=== PATIENT | female | born 1980 | race Two or more races ===

== ENCOUNTER 2018-04-09 15:25 | Outpatient (CLI) | payer BC ==
[~2018-04-09] VITALS: Ht 160 cm; Wt 75.0 kg
[2018-04-09 15:51] VITALS: BP 101/52
[2018-04-09 16:21] LABS: MICROSCOPIC NOT IND
== END 2018-04-09 17:23 | disposition home or self-care (01) ==
LOC: LDOP 15:25
PROVIDERS: ATTEND Obstetrics & Gynecology Maternal & Fetal Medicine
DX: O26.892 Other specified pregnancy related conditions, second trimester (principal); R10.9 Unspecified abdominal pain; Z3A.24 24 weeks gestation of pregnancy
CPT/HCPCS: 36415; 59025; 81003; 82731; 87086; 99211; G0463

== ENCOUNTER 2018-07-06 16:27 | Outpatient (CLI) | payer BC ==
[~2018-07-06] VITALS: Ht 161.3 cm; Wt 77.7 kg
[2018-07-06 16:44] VITALS: BP 100/56
[2018-07-06] MEDS ORDERED: TERBUTALINE 1 MG/ML, 1ML SQ ONE (17:00)
[2018-07-06] MEDS ORDERED: PREN1TAB60 PO (17:21)
[2018-07-06] MEDS ORDERED: LACTATED RINGERS 1,000 ML IVBOLUS ONE (17:30)
== END 2018-07-06 19:10 | disposition home or self-care (01) ==
LOC: LDOP 16:27
PROVIDERS: ATTEND Obstetrics & Gynecology Maternal & Fetal Medicine
DX: O09.523 Supervision of elderly multigravida, third trimester (principal); O32.1XX0 Maternal care for breech presentation, not applicable or unspecified; Z3A.37 37 weeks gestation of pregnancy
CPT/HCPCS: 59025; 59412; 76805; 76818; 96360; 96361; 99211; J7120; G0463

== ENCOUNTER 2018-07-15 09:06 | Outpatient (CLI) | payer BC ==
[~2018-07-15] VITALS: Ht 161.3 cm; Wt 78.1 kg
[~2018-07-15 09:06] MED LIST: PREN1TAB60 PO
[2018-07-15 09:41] VITALS: BP 109/57
[2018-07-15] MEDS ORDERED: LACTATED RINGERS 1,000 ML IVBOLUS ONE (10:30)
[2018-07-15 10:42] LABS: MICROSCOPIC INDICATED
[2018-07-15] MEDS ORDERED: NITR100C56 PO (11:59)
== END 2018-07-15 12:30 | disposition home or self-care (01) ==
LOC: LDOP 09:06
PROVIDERS: ATTEND Obstetrics & Gynecology Maternal & Fetal Medicine
DX: O26.93 Pregnancy related conditions, unspecified, third trimester (principal); R10.9 Unspecified abdominal pain; Z3A.38 38 weeks gestation of pregnancy
CPT/HCPCS: 59025; 81001; 87086; 96360; 96361; 99211; J7120; G0463

== ENCOUNTER 2018-07-21 05:37 | Inpatient (IN) | payer BC ==
[~2018-07-21] VITALS: Ht 160 cm; Wt 78.2 kg
[~2018-07-21 05:37] MED LIST changes: +NITR100C56 PO
[2018-07-21] MEDS ORDERED: LACTATED RINGERS 1,000 ML IV SCH ×2 (05:42→06:00)
[2018-07-21] MEDS ORDERED: OXYTOCIN 30U/ 0.9% NaCL 500ML 500 ML IV SCH (05:42)
[2018-07-21] MEDS ORDERED: NEWBORN KIT ONE (05:47)
[2018-07-21 06:00] VITALS: BP 110/63
[2018-07-21] MEDS ORDERED: METOCLOPRAMIDE 5 MG/ML, 2ML IV ONE (06:00)
[2018-07-21] MEDS ORDERED: SODIUM CITRATE/CITRIC ACID 30 ML UDC PO ONE (06:00)
[2018-07-21] MEDS ORDERED: LACTATED RINGERS 1,000 ML IVBOLUS ONE (06:00)
[2018-07-21 06:13] LABS: BASOPHILS # (AUTO) 0.04 x10^3/uL (0-0.1); BASOPHILS % (AUTO) 1 % (0-1); EOSINOPHILS # (AUTO) 0.12 x10^3/uL (0-0.4); EOSINOPHILS % (AUTO) 1 % (1-7); LYMPHOCYTES # (AUTO) 1.67 x10^3/uL (1-3.4); LYMPHOCYTES % (AUTO) 17 % (22-44); MD NO; MEAN CORPUSCULAR HEMOGLOBIN 32.5 pg (27.0-34.8); MEAN CORPUSCULAR HGB CONC 33.8 g/dL (32.4-35.8); MEAN PLATELET VOLUME 8.5 fL (7.4-10.4); MONOCYTES # (AUTO) 0.69 x10^3/uL (0.2-0.8); MONOCYTES % (AUTO) 7 % (2-9); NEUTROPHILS # (AUTO) 7.14 x10^3/uL (1.8-6.8); NEUTROPHILS % (AUTO) 74 % (42-75); PLATELET COUNT 242 x10^3/uL (130-400); RED CELL DISTRIBUTION WIDTH 14.8 % (9.6-15.2)
[2018-07-21] MEDS ORDERED: SODIUM CITRATE/CITRIC ACID 30 ML UDC ONE (07:11)
[2018-07-21] MEDS ORDERED: METOCLOPRAMIDE 5 MG/ML, 2ML ONE (07:11)
[2018-07-21] MEDS ORDERED: OXYTOCIN 30U/ 0.9% NaCL 500ML 500 ML ONE (07:11)
[2018-07-21] MEDS ORDERED: morphine SULFATE/PF 0.5 MG/ML, 10ML ONE (07:28)
[2018-07-21] MEDS ORDERED: WATER-INJECTION,STERILE 10 ML IV ONE (07:29)
[2018-07-21] MEDS ORDERED: ONDANSETRON 2MG/ML, 2ML ONE (07:29)
[2018-07-21] MEDS ORDERED: CEFAZOLIN 1,000 MG ONE (07:29)
[2018-07-21] MEDS ORDERED: OXYTOCIN 10 UNITS/ML, 1ML ONE ×2 (07:29→07:45)
[2018-07-21] MEDS ORDERED: DEXAMETHASONE 4 MG/ML, 1ML ONE (07:29)
[2018-07-21] MEDS ORDERED: KETOROLAC 30 MG/1 ML ONE (08:00)
[2018-07-21] MEDS: LACTATED RINGERS 1,000 ML IV SCH ×4 (08:39→18:39)
[2018-07-21] MEDS: PRENATAL VIT/IRON/FA 1 EACH TABLET PO SCH (09:00)
[2018-07-21] MEDS ORDERED: METHYLERGONOVINE 0.2 MG/ML IM PRN (09:00)
[2018-07-21] MEDS ORDERED: ONDANSETRON 2MG/ML, 2ML IV PRN (09:00)
[2018-07-21] MEDS ORDERED: MISOPROSTOL 200 MCG TABLET PR PRN (09:00)
[2018-07-21] MEDS ORDERED: OXYcodone/APAP 5/325MG TABLET PO PRN ×2 (09:00)
[2018-07-21] MEDS ORDERED: DIPH,PERTUSS(ACELL),TET VAC/PF NC IM-VACC PRN (09:00)
[2018-07-21] MEDS ORDERED: ACETAMINOPHEN 325 MG TABLET PO PRN (09:00)
[2018-07-21] MEDS ORDERED: MEASLES,MUMPS&RUBELLA VACC/PF 0.5 ML SQ-VACC PRN (09:00)
[2018-07-21] MEDS ORDERED: CARBOPROST TROMETHAMINE 250 MCG/ML, 1ML IM PRN (09:00)
[2018-07-21] MEDS: OXYTOCIN 30U/ 0.9% NaCL 500ML 500 ML IV SCH ×2 (09:37→18:39)
[2018-07-21] MEDS ORDERED: OXYcodone 5 MG/5 ML ORAL.SOL UDC ONE (10:25)
[2018-07-21] MEDS ORDERED: OXYcodone 5 MG/5 ML ORAL.SOL UDC PO PRN (10:30)
[2018-07-21] MEDS: KETOROLAC 30 MG/1 ML IV SCH ×3 (11:27→23:45)
[2018-07-21 12:00] VITALS: BP 107/65
[2018-07-21 14:10] VITALS: BP 100/57
[2018-07-21 16:21] LABS: MEAN CORPUSCULAR HGB CONC 32.8 g/dL (32.4-35.8); MEAN CORPUSCULAR VOLUME 97.4 fL (80-100); MEAN PLATELET VOLUME 8.6 fL (7.4-10.4); PLATELET COUNT 249 x10^3/uL (130-400); RED BLOOD COUNT 4.04 x10^6/uL (3.82-5.3); RED CELL DISTRIBUTION WIDTH 14.9 % (9.6-15.2)
[2018-07-21 16:43] LABS: MD YES
[2018-07-21 16:47] LABS: BAND#(MANUAL) 1.75 x10^3/uL; BANDS%(MANUAL) 10 % (0-7); LYMPHS% (MANUAL) 4 % (22-44); MONOS#(MANUAL) 0.35 x10^3/uL (0.3-2.7); MONOS% (MANUAL) 2 % (2-9); SEGS% (MANUAL) 84 % (42-75)
[2018-07-21 16:48] LABS: <PLATELET ESTIMATE> ADEQUATE; <PLT MORPHOLOGY> NORMAL PLT MORPH; <RBC MORPHOLOGY> NORMAL
[2018-07-21 18:00] VITALS: BP 104/67
[2018-07-21] MEDS ORDERED: RHOGAM FROM BLOOD BANK 1 NOTE EA IM/IV ONE (18:00)
[2018-07-21 19:30] VITALS: BP 95/55
[2018-07-22] VITALS: BP 100/51
[2018-07-22] MEDS: LACTATED RINGERS 1,000 ML IV SCH ×5 (00:39→16:39)
[2018-07-22] MEDS ORDERED: DIPHENHYDRAMINE 50 MG/ML, 1ML IVPush PRN (02:30)
[2018-07-22 04:00] VITALS: BP 95/54
[2018-07-22] MEDS: OXYTOCIN 30U/ 0.9% NaCL 500ML 500 ML IV SCH ×2 (04:39→14:39)
[2018-07-22] MEDS: KETOROLAC 30 MG/1 ML IV SCH ×4 (05:30→23:01)
[2018-07-22 07:00] VITALS: BP 94/60
[2018-07-22] MEDS: DOCUSATE 100 MG CAPSULE PO PRN ×2 (07:33→23:01)
[2018-07-22] MEDS: SIMETHICONE 80 MG CHEW TAB PO PRN ×2 (07:33→23:09)
[2018-07-22] MEDS: PRENATAL VIT/IRON/FA 1 EACH TABLET PO SCH (07:33)
[2018-07-22] MEDS ORDERED: IBUP-1222 PO (08:00)
[2018-07-22] MEDS ORDERED: OXYC-302 PO (08:00)
[2018-07-22 19:20] VITALS: BP 100/64
[2018-07-23] MEDS: OXYTOCIN 30U/ 0.9% NaCL 500ML 500 ML IV SCH ×2 (00:39→10:39)
[2018-07-23] MEDS: LACTATED RINGERS 1,000 ML IV SCH ×4 (00:39→10:39)
[2018-07-23] MEDS: KETOROLAC 30 MG/1 ML IV SCH (04:58)
[2018-07-23] MEDS: DOCUSATE 100 MG CAPSULE PO PRN (07:54)
[2018-07-23] MEDS: PRENATAL VIT/IRON/FA 1 EACH TABLET PO SCH (07:54)
[2018-07-23 08:00] VITALS: BP 97/58
== END 2018-07-23 13:34 | disposition home or self-care (01) | DRG 787 ==
LOC: LDIP 05:37 → 2NW 10:41
PROVIDERS: ADMIT Obstetrics & Gynecology Maternal & Fetal Medicine; ATTEND Obstetrics & Gynecology Maternal & Fetal Medicine
PROC: 10D00Z1 Extraction of Products of Conception, Low, Open Approach (ICD-10-PCS; principal; 2018-07-21)
PROC: 3E0334Z Introduction of Serum, Toxoid and Vaccine into Peripheral Vein, Percutaneous Approach (ICD-10-PCS; 2018-07-21)
DX: O32.1XX0 Maternal care for breech presentation, not applicable or unspecified (principal); O99.354 Diseases of the nervous system complicating childbirth; O26.893 Other specified pregnancy related conditions, third trimester; O99.824 Streptococcus B carrier state complicating childbirth; G43.909 Migraine, unspecified, not intractable, without status migrainosus; Z82.49 Family history of ischemic heart disease and other diseases of the circulatory system; Z83.3 Family history of diabetes mellitus; Z37.0 Single live birth; Z90.49 Acquired absence of other specified parts of digestive tract; Z67.41 Type O blood, Rh negative; Z23 Encounter for immunization
CPT/HCPCS: 36415; J2790; 85025; 85461; 86850; 86900; G0378; J0690; J1100; J1885; J2274; J2405; J1200; J2590; J2765; J7120

== ENCOUNTER 2019-06-12 14:39 | Day surgery (SDC) | payer BC ==
[~2019-06-12] VITALS: Ht 161.3 cm; Wt 69.5 kg
[~2019-06-12 14:39] MED LIST changes: +IBUP-1222 PO; +OXYC-302 PO
[2019-06-12] MEDS ORDERED: LACTATED RINGERS 1,000 ML IV SCH (15:01)
[2019-06-12 15:21] VITALS: BP 116/77
[2019-06-12 15:50] LABS: BASOPHILS # (AUTO) 0.02 x10^3/uL (0-0.1); BASOPHILS % (AUTO) 0 % (0-1); EOSINOPHILS # (AUTO) 0.08 x10^3/uL (0-0.4); EOSINOPHILS % (AUTO) 1 % (1-7); LYMPHOCYTES % (AUTO) 28 % (22-44); MD NO; MEAN CORPUSCULAR HEMOGLOBIN 32.4 pg (27.0-34.8); MEAN CORPUSCULAR HGB CONC 32.9 g/dL (32.4-35.8); MEAN CORPUSCULAR VOLUME 98.6 fL (80-100); MEAN PLATELET VOLUME 8.7 fL (7.4-10.4); MONOCYTES # (AUTO) 0.48 x10^3/uL (0.2-0.8); MONOCYTES % (AUTO) 5 % (2-9); NEUTROPHILS # (AUTO) 5.95 x10^3/uL (1.8-6.8); NEUTROPHILS % (AUTO) 66 % (42-75); PLATELET COUNT 269 x10^3/uL (130-400); RED BLOOD COUNT 4.43 x10^6/uL (3.82-5.3); RED CELL DISTRIBUTION WIDTH 13.5 % (9.6-15.2)
[2019-06-12] MEDS ORDERED: MIDAZOLAM 1 MG/ML, 2ML ONE (15:55)
[2019-06-12] MEDS ORDERED: FENTANYL PF 100 MCG/2ML ONE (15:56)
[2019-06-12] MEDS ORDERED: OXYcodone 5 MG/5 ML ORAL.SOL UDC PO PRN (16:00)
[2019-06-12] MEDS ORDERED: LABETALOL 5MG/ML, 20ML IV PRN (16:00)
[2019-06-12] MEDS ORDERED: PROMETHAZINE 25 MG/ML, 1ML IV PRN (16:00)
[2019-06-12] MEDS ORDERED: FENTANYL PF 100 MCG/2ML IV PRN (16:00)
[2019-06-12] MEDS ORDERED: MEPERIDINE/PF 25MG/ML,1ML IVPush PRN (16:00)
[2019-06-12] MEDS ORDERED: hydrALAzine 20 MG/ML, 1ML IV PRN (16:00)
[2019-06-12] MEDS ORDERED: HYDROmorphone 2 MG/ML, 1ML IVPush PRN (16:00)
[2019-06-12] MEDS ORDERED: HALOPERIDOL 5 MG/ML IV PRN (16:00)
[2019-06-12] MEDS ORDERED: METHYLERGONOVINE 0.2 MG/ML IM ONE (16:01)
[2019-06-12] MEDS ORDERED: MISOPROSTOL 200 MCG TABLET ONE (16:01)
[2019-06-12] MEDS ORDERED: OXYTOCIN 10 UNITS/ML, 1ML ONE (16:01)
[2019-06-12] MEDS ORDERED: SILVER NITRATE STICK TP ONE (16:01)
[2019-06-12] MEDS ORDERED: SODIUM CHLORIDE 0.9% 50 ML ONE (16:45)
[2019-06-12] MEDS ORDERED: VASOPRESSIN 20 UNIT/ML, 1ML ONE (16:45)
[2019-06-12] MEDS ORDERED: DEXAMETHASONE 4 MG/ML, 1ML ONE (17:35)
[2019-06-12] MEDS ORDERED: PROPOFOL 10 MG/ML, 20ML ONE (17:35)
[2019-06-12] MEDS ORDERED: ONDANSETRON 2MG/ML, 2ML ONE (17:35)
[2019-06-12] MEDS ORDERED: CEFAZOLIN 1,000 MG ONE (17:35)
[2019-06-12 18:14] VITALS: BP 119/59
[2019-06-12] MEDS ORDERED: OXYcodone 5 MG/5 ML ORAL.SOL UDC ONE (18:23)
[2019-06-12 19:30] VITALS: BP 105/69
[2019-06-12] MEDS ORDERED: OXYcodone IR 5MG TABLET PO PRN (21:30)
[2019-06-12 21:52] LABS: BASOPHILS # (AUTO) 0.04 x10^3/uL (0-0.1); BASOPHILS % (AUTO) 0 % (0-1); EOSINOPHILS # (AUTO) 0.01 x10^3/uL (0-0.4); EOSINOPHILS % (AUTO) 0 % (1-7); LYMPHOCYTES # (AUTO) 1.35 x10^3/uL (1-3.4); LYMPHOCYTES % (AUTO) 9 % (22-44); MD NO; MEAN CORPUSCULAR HEMOGLOBIN 32.6 pg (27.0-34.8); MEAN CORPUSCULAR HGB CONC 33.2 g/dL (32.4-35.8); MEAN CORPUSCULAR VOLUME 98.2 fL (80-100); MEAN PLATELET VOLUME 8.9 fL (7.4-10.4); MONOCYTES # (AUTO) 0.12 x10^3/uL (0.2-0.8); MONOCYTES % (AUTO) 1 % (2-9); NEUTROPHILS # (AUTO) 13.49 x10^3/uL (1.8-6.8); NEUTROPHILS % (AUTO) 90 % (42-75); PLATELET COUNT 290 x10^3/uL (130-400); RED CELL DISTRIBUTION WIDTH 13.6 % (9.6-15.2)
== END 2019-06-12 23:02 | disposition home or self-care (01) ==
LOC: OR 14:39 → 4NE 18:57 → OR 23:02
PROVIDERS: ATTEND Obstetrics & Gynecology Maternal & Fetal Medicine
DX: O02.1 Missed abortion (principal); G43.909 Migraine, unspecified, not intractable, without status migrainosus; Z90.49 Acquired absence of other specified parts of digestive tract
CPT/HCPCS: 36415; 59820; 85025; 86850; 86900; 88305; J0690; J1100; J2250; J2405; J2704; J2790; J3010; J7120; G0378; J2210; J2590

== ENCOUNTER → 2020-07-09 | Outpatient (CLI) | payer BC | END | disposition home or self-care (01) | LOC: STAR 13:26 | PROVIDERS: ATTEND Obstetrics & Gynecology Maternal & Fetal Medicine | DX: Z20.828 Contact with and (suspected) exposure to other viral communicable diseases (principal) | CPT/HCPCS: 87635 ==

== ENCOUNTER 2020-07-14 14:37 | Day surgery (SDC) | payer BC ==
[~2020-07-14] VITALS: Ht 161.3 cm; Wt 73.5 kg
[2020-07-14 15:24] VITALS: BP 115/73
[2020-07-14] MEDS ORDERED: LACTATED RINGERS 1,000 ML IV SCH (15:30)
[2020-07-14] MEDS ORDERED: CHLORHEXIDINE 15 ML UDC MM ONE (15:30)
[2020-07-14] MEDS ORDERED: CHLORHEXIDINE 15 ML UDC ONE (15:36)
[2020-07-14] MEDS ORDERED: OXYTOCIN 10 UNITS/ML, 1ML ONE (15:59)
[2020-07-14] MEDS ORDERED: METHYLERGONOVINE 0.2 MG/ML IM ONE (15:59)
[2020-07-14] MEDS ORDERED: SILVER NITRATE STICK TP ONE (15:59)
[2020-07-14] MEDS ORDERED: VASOPRESSIN 20 UNIT/ML, 1ML ONE (15:59)
[2020-07-14] MEDS ORDERED: SODIUM CHLORIDE 0.9% 0 ML ONE (15:59)
[2020-07-14] MEDS ORDERED: MISOPROSTOL 200 MCG TABLET ONE (15:59)
[2020-07-14] MEDS ORDERED: BUPIVACAINE/PF 0.25% ONE (16:00)
[2020-07-14] MEDS ORDERED: EPINEPHRINE 1 MG/ML, 1ML ONE (16:00)
[2020-07-14] MEDS ORDERED: NEOSPORIN OINT, 15GM ONE (16:00)
[2020-07-14] MEDS ORDERED: MIDAZOLAM 1 MG/ML, 2ML ONE (16:13)
[2020-07-14] MEDS ORDERED: FENTANYL PF 250 MCG/5ML ONE (16:13)
[2020-07-14 16:20] LABS: BASOPHILS % (AUTO) 1 % (0-1); EOSINOPHILS % (AUTO) 1 % (1-7); LYMPHOCYTES % (AUTO) 27 % (22-44); MEAN CORPUSCULAR HEMOGLOBIN 32.1 pg (27.0-34.8); MEAN CORPUSCULAR HGB CONC 33.2 g/dL (32.4-35.8); MONOCYTES % (AUTO) 6 % (2-9); NEUTROPHILS % (AUTO) 66 % (42-75); PLATELET COUNT 258 x10^3/uL (130-400); RED BLOOD COUNT 4.31 x10^6/uL (3.82-5.3); RED CELL DISTRIBUTION WIDTH 13.7 % (9.6-15.2)
[2020-07-14 16:27] LABS: MD NO
[2020-07-14] MEDS ORDERED: ACETAMINOPHEN 325 MG TABLET PO PRN (16:30)
[2020-07-14] MEDS ORDERED: hydrALAzine 20 MG/ML, 1ML IV PRN (16:30)
[2020-07-14] MEDS ORDERED: MIDAZOLAM 1 MG/ML, 2ML IV PRN (16:30)
[2020-07-14] MEDS ORDERED: DIPHENHYDRAMINE 50 MG/ML, 1ML IVPush PRN (16:30)
[2020-07-14] MEDS ORDERED: EPHEDRINE 50 MG/ML, 1ML IVPush PRN (16:30)
[2020-07-14] MEDS ORDERED: PROMETHAZINE 12.5 MG SUPP PR PRN (16:30)
[2020-07-14] MEDS ORDERED: DIAZEPAM 5 MG/ML, 2ML IVPush PRN (16:30)
[2020-07-14] MEDS ORDERED: OXYcodone 5 MG/5 ML ORAL.SOL UDC PO PRN (16:30)
[2020-07-14] MEDS ORDERED: ONDANSETRON 2MG/ML, 2ML IVPush PRN (16:30)
[2020-07-14] MEDS ORDERED: PROMETHAZINE 25 MG/ML, 1ML IVPush PRN (16:30)
[2020-07-14] MEDS ORDERED: LABETALOL 5MG/ML, 20ML IV PRN (16:30)
[2020-07-14] MEDS ORDERED: FENTANYL PF 100 MCG/2ML IV PRN (16:30)
[2020-07-14] MEDS ORDERED: HYDROmorphone 1 MG/ML, 1ML INJ IVPush PRN (16:30)
[2020-07-14] MEDS ORDERED: ALBUTEROL SULFATE 2.5 MG/3 ML NPPB PRN (16:30)
[2020-07-14] MEDS ORDERED: MEPERIDINE/PF 25MG/0.5ML IVPush PRN (16:30)
[2020-07-14 16:44] LABS: ANION GAP 9 mmol/L (5-15); CHLORIDE 110 mmol/L (98-107)
[2020-07-14] MEDS ORDERED: SUCCINYLCHOLINE 20 MG/ML, 10ML ONE (16:49)
[2020-07-14] MEDS ORDERED: PROPOFOL 10 MG/ML, 20ML ONE (16:49)
[2020-07-14] MEDS ORDERED: DEXAMETHASONE 4 MG/ML, 1ML ONE (16:49)
[2020-07-14] MEDS ORDERED: CEFAZOLIN 1,000 MG ONE (16:49)
[2020-07-14] MEDS ORDERED: ROCURONIUM 10MG/ML,5ML ONE (16:49)
[2020-07-14] MEDS ORDERED: ONDANSETRON 2MG/ML, 2ML ONE (17:21)
[2020-07-14] MEDS ORDERED: SUGAMMADEX 200 MG/2 ML IVPush ONE (17:21)
[2020-07-14] MEDS ORDERED: RHOGAM FROM BLOOD BANK 1 NOTE EA IM/IV ONE (18:00)
[2020-07-14] MEDS ORDERED: FENTANYL PF 100 MCG/2ML ONE (18:01)
[2020-07-14] MEDS ORDERED: ACETAMINOPHEN 650 MG/20.3 ML UDC ONE (18:18)
[2020-07-14] MEDS ORDERED: OXYcodone 5 MG/5 ML ORAL.SOL UDC ONE (18:19)
[2020-07-14 20:16] VITALS: BP 111/73
[2020-07-14 20:35] VITALS: BP 106/72
== END 2020-07-14 21:05 | disposition home or self-care (01) ==
LOC: OR 14:37
PROVIDERS: ATTEND Obstetrics & Gynecology Maternal & Fetal Medicine
DX: O02.1 Missed abortion (principal); Z30.2 Encounter for sterilization; G43.909 Migraine, unspecified, not intractable, without status migrainosus; Z79.899 Other long term (current) drug therapy; Z90.49 Acquired absence of other specified parts of digestive tract
CPT/HCPCS: 36415; 58661; 59820; 80048; 84702; 85025; 86850; 86870; 86900; 88302; 88305; 93005; J0171; J2250; J2405; J2790; J3010; J7120; J0690; J1100; J2704; J0330; J2210; J2590